=== PATIENT | female | born 1995 | race Caucasian/White ===

== ENCOUNTER 2020-06-30 07:23 | Day surgery (SDC) | payer OTHER ==
[~2020-06-30 07:23] MED LIST: AMBIEN5 MG PO
== END 2020-06-30 18:40 | disposition home or self-care (01) ==
LOC: CIR.AMB 07:23
PROVIDERS: ATTEND Specialist
DX: T83.89XA Other specified complication of genitourinary prosthetic devices, implants and grafts, initial encounter (principal); Z20.828 Contact with and (suspected) exposure to other viral communicable diseases

== ENCOUNTER 2020-11-16 21:15 | Emergency (ER) | payer OTHER ==
[~2020-11-16] VITALS: Ht 157.5 cm; Wt 90.7 kg
[2020-11-16] MEDS ORDERED: PRENATALES (21:49)
== END 2020-11-17 03:33 | disposition home or self-care (01) ==
LOC: ER 21:15
DX: O26.891 Other specified pregnancy related conditions, first trimester (principal); R30.0 Dysuria; Z34.01 Encounter for supervision of normal first pregnancy, first trimester

== ENCOUNTER 2021-02-27 21:22 | Emergency (ER) | payer OTHER ==
[~2021-02-27] VITALS: Ht 157.5 cm; Wt 95.3 kg
[~2021-02-27 21:22] MED LIST changes: +PRENATALES
[2021-02-27] MEDS ORDERED: MACRODANTIN100 M1 PO (23:07)
== END 2021-02-27 23:34 | disposition home or self-care (01) ==
LOC: ER 21:22
DX: N39.0 Urinary tract infection, site not specified (principal)

== ENCOUNTER 2021-03-28 22:03 | Outpatient (CLI) | payer OTHER ==
[~2021-03-28 22:03] MED LIST changes: +MACRODANTIN100 M1 PO
== END 2021-03-29 14:19 | disposition home or self-care (01) ==
LOC: OBS/DEL 22:03
PROVIDERS: ATTEND Specialist
DX: O99.613 Diseases of the digestive system complicating pregnancy, third trimester (principal); K80.80 Other cholelithiasis without obstruction; O23.33 Infections of other parts of urinary tract in pregnancy, third trimester; Z3A.31 31 weeks gestation of pregnancy

== ENCOUNTER 2021-05-25 08:38 | Inpatient (IN) | payer OTHER ==
[~2021-05-25] VITALS: Ht 157.5 cm; Wt 3.2 kg
[2021-05-25] MEDS ORDERED: PRENATAL + DHA1 EAC1 PO (11:26)
[2021-05-28] MEDS ORDERED: SURFAK240 M1 PO (10:33)
[2021-05-28] MEDS ORDERED: PERCOCET 5-3251 EACH PO (10:33)
[2021-05-28] MEDS ORDERED: IBU800 MG PO (10:33)
== END 2021-05-28 11:13 | disposition home or self-care (01) | DRG 788 ==
LOC: LDR 08:38 → OB/GYN 14:34 → SURG-SUITE 17:33
PROVIDERS: ADMIT Specialist; ATTEND Specialist
PROC: 4A1HXFZ Monitoring of Products of Conception, Cardiac Rhythm, External Approach (ICD-10-PCS; 2021-05-25)
PROC: 10D00Z1 Extraction of Products of Conception, Low, Open Approach (ICD-10-PCS; principal; 2021-05-25 12:15)
DX: O34.211 Maternal care for low transverse scar from previous cesarean delivery (principal); Z37.0 Single live birth; Z3A.39 39 weeks gestation of pregnancy; Z20.822 Contact with and (suspected) exposure to COVID-19

== ENCOUNTER 2024-05-18 17:48 | Emergency (ER) | payer OTHER ==
[~2024-05-18] VITALS: Ht 157.5 cm; Wt 129.3 kg
[~2024-05-18 17:48] MED LIST changes: +IBU800 MG PO; +PERCOCET 5-3251 EACH PO; +PRENATAL + DHA1 EAC1 PO; +SURFAK240 M1 PO
[2024-05-18] MEDS ORDERED: KETOROLAC TROMETHAMINE 30 MG VIAL IM STA (19:45)
[2024-05-18] MEDS ORDERED: CLINDAMYCIN PHOSPHATE 150 MG/ML (300mg) IM STA (19:46)
[2024-05-18] MEDS ORDERED: KETOROLAC TROMETHAMINE 30 MG VIAL ONE (19:52)
[2024-05-18] MEDS ORDERED: CLINDAMYCIN PHOSPHATE 150 MG/ML (300mg) ONE (19:53)
== END 2024-05-18 21:27 | disposition home or self-care (01) ==
LOC: ER 17:49
DX: K08.89 Other specified disorders of teeth and supporting structures (principal); Z91.048 Other nonmedicinal substance allergy status